=== PATIENT | male | born 1945 | race Caucasian/White ===

== ENCOUNTER 2018-05-03 14:30 | Emergency (ER) | payer MEDICARE, MEDICAID ==
[~2018-05-03] VITALS: Ht 167.6 cm; Wt 91.0 kg
[~2018-05-03 14:30] MED LIST: HYDR25TA PO; TAMS0.4C31 PO
[2018-05-03] MEDS ORDERED: KETOROLAC 30MG/ML VIAL IM ONE (16:15)
[2018-05-03 17:03] VITALS: BP 143/92
== END 2018-05-03 17:42 | disposition home or self-care (01) ==
LOC: ER 16:20
DX: S49.81XA Other specified injuries of right shoulder and upper arm, initial encounter (principal); W01.0XXA Fall on same level from slipping, tripping and stumbling without subsequent striking against object, initial encounter; Y93.H2 Activity, gardening and landscaping; Y92.017 Garden or yard in single-family (private) house as the place of occurrence of the external cause
CPT/HCPCS: 73030; 96372; 99284; J1885; A4565